=== PATIENT | male | born 1985 | race Caucasian/White ===

== ENCOUNTER → 2016-05-30 | Outpatient (REF) | LOC: WSOH 13:05 | DX: Z02.89 Encounter for other administrative examinations (principal) | CPT/HCPCS: G0463 ==

== ENCOUNTER → 2016-07-14 | Outpatient (REF) | LOC: WSOH 13:43 | DX: Z01.83 Encounter for blood typing (principal) ==

== ENCOUNTER → 2017-02-02 | Outpatient (REF) | LOC: WSOH 10:24 | DX: Z02.89 Encounter for other administrative examinations (principal) ==

== ENCOUNTER 2021-10-05 13:12 | Outpatient (RCR) | payer OTHER | END 2021-10-05 15:13 | disposition home or self-care (01) | LOC: WSOH 13:12 | DX: S76.012D Strain of muscle, fascia and tendon of left hip, subsequent encounter (principal); Y99.0 Civilian activity done for income or pay ==